=== PATIENT | female | born 1995 | race Hispanic/Latino ===

== ENCOUNTER 2017-02-21 01:20 | Emergency (ER) | payer OTHER ==
[2017-02-21 01:35] VITALS: TEMP 99
--- NOTE | 2017-02-21 01:51 | ED PDOC ---
HPI: Allergic Reaction Time Seen by Provider: 02/21/17 01:30 Chief Complaint (Nursing): Allergic Reaction Chief Complaint (Provider): allergic reaction History Per: Patient History/Exam Limitations: no limitations Onset/Duration Of Symptoms: Hrs Current Symptoms Are (Timing): Better Possible Cause: Medication (ibuprofen) Associated Symptoms: Skin Rash, Swelling Home/EMS Treatment: Benadryl Additional History Per: Patient Additional Complaint(s): 21 y/o female history of angioedema presents for eval of allergic reaction. Patient states she took an Ibuprofen tablet (without knowing it was) around 21: 00 last night; approx one hour later developed generalized itchy hives to body. Patient notes hives to have improved with cold shower, but then eyes and lips to swell. Patient took 3 Benadryl at 23:00. Upon arrival she notes rash to have resolved and swelling to have improved. Denies fever, headache, difficulty speaking/swallowing, nauesa/vomiting, cough, chest pain, shortness of breath, palpitations, abdominal pain. Past Medical History Reviewed: Historical Data, Nursing Documentation, Vital Signs Vital Signs: Last Vital Signs Temp 99 F 02/21/17 01:27 Pulse 101 H 02/21/17 01:27 Resp 18 02/21/17 01:27 BP 147/114 H 02/21/17 01:27 Pulse Ox 99 02/21/17 01:27 - Medical History PMH: No Chronic Diseases - Surgical History Surgical History: No Surg Hx - Family History Family History: States: Unknown Family Hx - Living Arrangements Living Arrangements: With Family - Home Medications Home Medications: Ambulatory Orders Medication Instructions Recorded Valacyclovir HCl [Valtrex] 2,000 mg PO BID #4 tablet 02/08/16 [facility]/Oxyben/Octnx/Oct Ryan/Merad 2.8 gm TP DAILY #1 stick...g. 06/03/16 [Herpecin l Stick] Prednisone 20 mg PO BID #8 tablet 06/03/16 predniSONE [Prednisone] 40 mg PO DAILY 2 Days 12/24/16 Epinephrine HCl [Epipen 0.3 mg INJ PRN PRN #2 02/21/17 Auto-Injector] Prednisone 50 mg PO DAILY #4 tablet 02/21/17 - Allergies Allergies/Adverse Reactions: Allergies Allergy/AdvReac Type Severity Reaction Status Date / Time ibuprofen Allergy SWELLING Verified 02/21/17 01:26 Penicillins Allergy RASH Verified 02/08/16 21:07 Review of Systems ROS Statement: Except As Marked, All Systems Reviewed And Found Negative Skin: Positive for: Rash, Other (swelling) Physical Exam - Reviewed Nursing Documentation Reviewed: Yes Vital Signs Reviewed: Yes - Physical Exam Appears: Positive for: Well, Non-toxic, No Acute Distress Head Exam: Positive for: ATRAUMATIC, NORMAL INSPECTION, NORMOCEPHALIC Eye Exam: Positive for: Periorbital swelling (b/l) ENT: Positive for: Other (moderate swelling to lips, airway patent) Cardiovascular/Chest: Positive for: Regular Rate, Rhythm Respiratory: Positive for: Normal Breath Sounds Gastrointestinal/Abdominal: Positive for: Normal Exam Extremity: Positive for: Normal ROM Neurologic/Psych: Positive for: Alert, Oriented - ECG O2 Sat by Pulse Oximetry: 99 - Progress ED Course And Treament: IV solumedrol, IV pepcid 2:45 Swelling resolved. Patient states she is feeling better. Patient requesting rx for epi pen as hers is . Rx epipen, prednisone given. Advised follow up PMD 2-3 days. Return to ED for worsening/concerning symptoms. Disposition - Clinical Impression Clinical Impression: Allergic reaction - Patient ED Disposition Is Patient to be Admitted: No Counseled Patient/Family Regarding: Diagnosis, Need For Followup, Rx Given - Disposition Disposition: Routine/Home Disposition Time: 02:53 Condition: IMPROVED Additional Instructions: Follow up with primary doctor in 2-3 days. Take Prednisone as directed. Return to Ed for worsening/concerning symptoms. Prescriptions: Epinephrine HCl [Epipen Auto-Injector] 0.3 mg INJ PRN PRN #2 PRN Reason: Anaphylaxis Prednisone 50 mg PO DAILY #4 tablet Instructions: General Allergic Reaction (ED)
[2017-02-21 03:10] VITALS: BP 134/65; PULSE 89; RESP 16; O2SAT 100
== END 2017-02-21 03:03 | disposition home or self-care (01) ==
LOC: H.ER 01:20
DX: T78.40XA Allergy, unspecified, initial encounter (principal); Z88.0 Allergy status to penicillin